=== PATIENT | male | born 1960 | race Caucasian/White ===

== ENCOUNTER 2019-02-15 03:18 | Emergency (ER) | payer BC ==
[2019-02-15 03:33] VITALS: TEMP 96.2
[2019-02-15] MEDS ORDERED: NITROGLYCERIN 0.4 MG TAB SL PRN (03:49)
[2019-02-15] MEDS ORDERED: ALBUTEROL/IPRATROPIUM 1 VIAL SOL INH ONE (03:51)
[2019-02-15] MEDS ORDERED: AMOXIL/CLAVULANATE 400/5 ML PDR PO ONE (03:52)
[2019-02-15] MEDS ORDERED: NITROGLYCERIN 0.4 MG TAB SL ONE (03:55)
[2019-02-15] MEDS ORDERED: LISINOPRIL 20 MG TAB ONE (03:55)
[2019-02-15] MEDS ORDERED: AMLODIPINE 5 MG TAB ONE (03:55)
[2019-02-15] MEDS ORDERED: LISINOPRIL 20 MG TAB PO SCH (04:00)
[2019-02-15] MEDS ORDERED: AMLODIPINE 5 MG TAB PO SCH (04:00)
[2019-02-15] MEDS ORDERED: CLONIDINE 0.1 MG TAB PO ONE (04:35)
[2019-02-15] MEDS ORDERED: CLONIDINE 0.1 MG TAB ONE (04:37)
[2019-02-15] MEDS ORDERED: ALBUTEROL/IPRATROPIUM 1 VIAL SOL ONE (04:46)
[2019-02-15] MEDS ORDERED: PREDNISONE 20 MG TAB PO ONE (05:16)
[2019-02-15] MEDS ORDERED: PREDNISONE 20 MG TAB ONE (05:32)
[2019-02-15 05:39] VITALS: BP 160/112; PULSE 72; RESP 22; O2SAT 95
== END 2019-02-15 05:45 | disposition home or self-care (01) ==
LOC: ED 03:18
DX: J98.01 Acute bronchospasm (principal); F17.210 Nicotine dependence, cigarettes, uncomplicated; I10 Essential (primary) hypertension; R06.02 Shortness of breath
CPT/HCPCS: 71046; 99283; A9270-GY